=== PATIENT | male | born 1945 | race African-American/Black ===

== ENCOUNTER → 2016-12-15 | Day surgery (SDC) | payer MEDICARE, OTHER ==
[~2016-12-15] MED LIST: ASPI-482 PO; ATOR40TA59 PO; CARV25TA2 PO; CHOL10003 PO; CYAN10005 PO; FLAX10003 PO; FURO-68 PO; GLIP5TAB10 PO; HYDROmorphone 2 MG/ML VIAL IV PRN; IV RINGERS,LACTATED 1000ML 1,000 ML IV SCH; LIDOCAINE 1% 1 ML SYRINGE. ID PRN; MAGN400T22 PO; METF-620 PO; MORPHINE SULFATE 2 MG/ML DISP.SYRIN. IV PRN; NIFE60TA16 PO; ONDANSETRON PF 4 MG/2 ML VIAL. IV PRN; POTA20TA82 PO; PROCHLORPERAZINE 10 MG/2 ML VIAL. IV PRN; PROPOFOL 20 ML IV ONE; SPIR25TA3 PO; TERA10CA3 PO; VALS1TAB18 PO; fentaNYL PF VIAL 100 MCG/2 ML VIAL IV PRN
[2016-12-15 08:35] VITALS: BP 159/76
--- NOTE | 2016-12-16 14:01 | PATHOLOGY ---
PATHOLOGY REPORT * * * * * * * * FINAL DIAGNOSIS: Colorectal biopsy, rectal polyp: - Hyperplastic polyp. COMMENT: There are no adenomatous changes or evidence of malignancy. (JPM:mgr; 12/16/2016) REPORT ELECTRONICALLY SIGNED BY: Presley Rich M.D. DATE/TIME: 12/16/2016 14:01 * * * * * * * * GROSS PATHOLOGY: Received in formalin labeled "Fantasma Gilbert, rectal polyp," are two segments of parnell soft tissue measuring 0.6 x 0.3 x 0.2 cm in aggregate dimensions and ranging from 0.2 to 0.4 cm in maximum dimension. The specimen is submitted entirely in cassette A1. (TSD; 12/15/2016) INITIAL CPT CODE(S): A; 23305 Professional services performed [place] [address] Technical services performed by [facility] at [address] [place] [address], [facility] [address] [address]. SPECIMEN(S) RECEIVED: A.Rectal polyp CLINICAL HISTORY: Iron deficiency anemia PATIENT: FANTASMA KUMAR /AGE: 812/17/1945 (Age: 70) PATIENT #: [id number] ALT CASE #: SPECIMEN COLLECTION DATE: 12/15/2016 SPECIMEN RECEIVED DATE: 12/15/2016 [facility] - [address] [place] [address] - PHONE: [phone] * * * END OF REPORT * * *
== END | disposition home or self-care (01) ==
LOC: ENDOS 06:51
PROVIDERS: ATTEND Internal Medicine Gastroenterology
DX: K64.0 First degree hemorrhoids (principal); K62.1 Rectal polyp; K29.50 Unspecified chronic gastritis without bleeding; E78.00 Pure hypercholesterolemia, unspecified; I10 Essential (primary) hypertension; E11.9 Type 2 diabetes mellitus without complications; F17.200 Nicotine dependence, unspecified, uncomplicated; Z88.8 Allergy status to other drugs, medicaments and biological substances
CPT/HCPCS: 43235; 45380; 82962; J2704